=== PATIENT | female | born 1995 | race Two or more races ===

== ENCOUNTER 2019-06-17 00:04 | Emergency (ER) | payer OTHER ==
[~2019-06-17] VITALS: Ht 160 cm; Wt 73.5 kg
== END 2019-06-17 04:44 | disposition home or self-care (01) ==
LOC: ER 00:04
DX: O98.512 Other viral diseases complicating pregnancy, second trimester (principal); B34.9 Viral infection, unspecified; R50.9 Fever, unspecified; Z34.02 Encounter for supervision of normal first pregnancy, second trimester

== ENCOUNTER 2019-06-26 12:55 | Inpatient (IN) | payer OTHER ==
[~2019-06-26] VITALS: Ht 160 cm; Wt 73.5 kg
== END 2019-06-29 13:18 | disposition home or self-care (01) | DRG 788 ==
LOC: OBS/DEL 12:55 → LDR 16:44 → OB/GYN 16:44 → O/R 19:50 → OB/GYN 20:12
PROVIDERS: ADMIT Obstetrics & Gynecology Obstetrics
PROC: 10D00Z1 Extraction of Products of Conception, Low, Open Approach (ICD-10-PCS; principal; 2019-06-29)
PROC: 4A1HXFZ Monitoring of Products of Conception, Cardiac Rhythm, External Approach (ICD-10-PCS; 2019-06-29)
PROC: 3E033VJ Introduction of Other Hormone into Peripheral Vein, Percutaneous Approach (ICD-10-PCS; 2019-06-29)
DX: O60.14X0 Preterm labor third trimester with preterm delivery third trimester, not applicable or unspecified (principal); O30.003 Twin pregnancy, unspecified number of placenta and unspecified number of amniotic sacs, third trimester; Z3A.28 28 weeks gestation of pregnancy; Z37.2 Twins, both liveborn